=== PATIENT | female | born 1975 | race Two or more races ===

== ENCOUNTER 2022-06-24 09:21 | Emergency (ER) | payer OTHER ==
[~2022-06-24] VITALS: Ht 162.6 cm; Wt 81.8 kg
[2022-06-24 11:56] VITALS: BP 150/101
== END 2022-06-24 11:50 ==
LOC: EMS 09:28
DX: Z13.9 Encounter for screening, unspecified (principal)
CPT/HCPCS: 71045; 74018; 84703; 99284; 36415-L1; 36415-TC